=== PATIENT | male | born 1965 | race African-American/Black ===

== ENCOUNTER 2024-06-11 18:35 | Emergency (ER) | payer OTHER ==
[~2024-06-11] VITALS: Ht 175.3 cm; Wt 75.0 kg
[2024-06-11 18:36] VITALS: TEMP 36.7; O2SAT 100
[2024-06-11 20:26] LABS: BASOPHILS % 1.1 % (0.0-2.0); EOSINOPHILS % 1.1 % (0.0-5.0); HEMOGLOBIN. 13.9 g/dL (14.0-18.0); LYMPHOCYTES % 18.4 % (20.0-50.0); MEAN CORPUSCULAR HEMOGLOBIN 32.2 pg (28.0-32.0); MEAN CORPUSCULAR HGB CONC 33.1 g/dL (31.0-37.0); MEAN CORPUSCULAR VOLUME 97.3 fL (80.0-94.0); MEAN PLATELET VOLUME 9.9 fl (7.4-10.4); MONOCYTES % 11.6 % (2.0-8.0); NEUTROPHILS % 67.8 % (40.0-76.0); PLATELET 208 x1000/uL (130-400); RED BLOOD CELL COUNT 4.31 mill/uL (4.7-6.1); RED CELL DISTRIBUTION WIDTH 15.8 % (11.6-14.6); WHITE BLOOD COUNT 5.5 x1000/uL (4.5-11.0)
[2024-06-11] MEDS: ASPIRIN 81MG TABLET PO ONE (20:27)
[2024-06-11 20:29] LABS: DIFFERENTIAL COMMENT 1
[2024-06-11 20:36] LABS: CHLORIDE 107 mEq/L (98-107); POTASSIUM 3.8 mEq/L (3.5-5.1); SODIUM 141 mEq/L (136-145)
[2024-06-11 20:37] LABS: CALCIUM 9.7 mg/dL (8.7-10.4); CARBON DIOXIDE 27 mEq/L (21-32)
[2024-06-11 20:42] LABS: CREATININE 1.4 mg/dL (0.6-1.3); GLUCOSE 93 mg/dL (70-105); UREA NITROGEN BLOOD 23 mg/dL (9-23)
[2024-06-11 20:59] LABS: TROPONIN I HIGH SENSITIVITY 98 ng/L (3.0-53)
[2024-06-11 21:05] VITALS: TEMP 98.1
[2024-06-11] MEDS: ACETAMINOPHEN 325MG TABLET PO ONE (21:05)
[2024-06-11] MEDS: KETOROLAC 15MG/ML VIAL IV ONE (21:05)
[2024-06-11 22:47] VITALS: BP 136/107; PULSE 100; RESP 21; O2SAT 100
== END 2024-06-11 23:46 | disposition short-term general hospital (02) ==
LOC: ER 18:35
DX: I11.0 Hypertensive heart disease with heart failure (principal); I50.9 Heart failure, unspecified; R55 Syncope and collapse; E11.9 Type 2 diabetes mellitus without complications; E78.5 Hyperlipidemia, unspecified; J44.9 Chronic obstructive pulmonary disease, unspecified; Z95.810 Presence of automatic (implantable) cardiac defibrillator
CPT/HCPCS: 80048; 82962; 83880; 85025; 84484; 36415; 71045; 70450; 93005; 96374; 99285; Z7610 ×4; J1885